=== PATIENT | female | born 1955 | race Caucasian/White ===

== ENCOUNTER 2018-01-01 06:20 | Day surgery (SDC) | payer OTHER ==
[2018-01-01] MEDS: LACTATED RINGER'S 1,000 ML IV* (06:00)
[2018-01-01] MEDS ORDERED: DIPHENHYDRAMINE 50 MG INJ IV (06:30)
[2018-01-01] MEDS ORDERED: MIDAZOLAM 1 MG/ML 2 ML INJ IV (06:30)
[2018-01-01] MEDS ORDERED: morphine (1 MG/ML) 10ML SYRINGE IV ×3 (06:30)
[2018-01-01] MEDS ORDERED: ATROPINE 1 MG/10 ML SYRINGE IV (06:30)
[2018-01-01] MEDS ORDERED: OXYCODONE/ACETAMINOPHEN (5/325) TAB PO ×2 (06:30)
[2018-01-01] MEDS ORDERED: EPHEDrine SULFATE 50 MG/5 ML SYG IV (06:30)
[2018-01-01] MEDS ORDERED: HYDROmorphONE 1 MG/5 ML IV SYRINGE IV ×3 (06:30)
[2018-01-01] MEDS ORDERED: MEPERIDINE 25 MG INJ IV (06:30)
[2018-01-01] MEDS ORDERED: FENTAnyl 50 MCG/ML VIAL IV (06:30)
[2018-01-01] MEDS ORDERED: LABETALOL HCL 20MG INJ IV (06:30)
[2018-01-01] MEDS ORDERED: ROCURONIUM 50 MG INJ (06:31)
[2018-01-01] MEDS ORDERED: NEOSTIGMINE 3 MG/3 ML SYRINGE (06:31)
[2018-01-01] MEDS ORDERED: GLYCOPYRROLATE 0.4 MG INJ (06:31)
[2018-01-01] MEDS ORDERED: PROPOFOL 20 ML (06:31)
[2018-01-01] MEDS ORDERED: FENTAnyl 50 MCG/ML VIAL (06:31)
[2018-01-01] MEDS ORDERED: LIDOCAINE 2% (SDV) 5 ML INJ (06:31)
[2018-01-01] MEDS ORDERED: DEXAMETHASONE 4 MG/ML 1 ML INJ (06:32)
[2018-01-01] MEDS ORDERED: ONDANSETRON 4 MG INJ (06:32)
[2018-01-01] MEDS ORDERED: MIDAZOLAM 1 MG/ML 2 ML INJ (06:32)
[2018-01-01] MEDS: INSULIN ASPART [NOVOLOG] 3 ML PEN SC (07:11)
[2018-01-01 07:32] LABS: ADD MAN DIFF? NO
[2018-01-01 07:35] LABS: WHITE BLOOD COUNT 10.5 10^3/ul (4.8-10.8)
[2018-01-01 07:35] LABS: BASOPHIL # 0.1 10^3/ul (0.0-0.1); BASOPHILS % 0.8 % (0.0-2.0); EOSINOPHILS # 0.2 10^3/ul (0.0-0.5); EOSINOPHILS % 2.1 % (0.0-7.0); HEMATOCRIT 38.6 % (37.0-47.0); HEMOGLOBIN 13.1 g/dl (12.0-16.0); LYMPHOCYTES # 2.6 10^3/ul (0.8-2.9); LYMPHOCYTES % 24.8 % (15.0-51.0); MEAN CORPUSCULAR HEMOGLOBIN 30.6 pg (29.0-33.0); MEAN CORPUSCULAR HGB CONC 33.9 g/dl (32.0-37.0); MEAN CORPUSCULAR VOLUME 90.2 fl (82.0-101.0); MEAN PLATELET VOLUME 11.4 fl (7.4-10.4); MONOCYTE # 0.7 10^3/ul (0.3-0.9); MONOCYTES % 7.1 % (0.0-11.0); NEUTROPHIL # 6.8 10^3/ul (1.6-7.5); PLATELET COUNT 244 10^3/UL (140-415); RED BLOOD COUNT 4.28 10^6/ul (4.20-5.40); RED CELL DISTRIBUTION WIDTH 13.3 % (11.5-14.5)
[2018-01-01 07:59] LABS: ANION GAP 15 (8-16); BLOOD UREA NITROGEN 16 mg/dl (7-20); CALCIUM 9.5 mg/dl (8.4-10.2); CARBON DIOXIDE 23 mmol/L (21-31); CHLORIDE 107 mmol/L (97-110); CREATININE 0.65 mg/dl (0.44-1.00); GLUCOSE 197 mg/dl (70-220); POTASSIUM 4.3 mmol/L (3.5-5.1); SODIUM 141 mmol/L (135-144)
[2018-01-01 08:08] LABS: INR 0.93; PROTIME 12.6 Sec (11.9-14.9)
[2018-01-01] MEDS: CLINDAMYCIN 900 MG/D5W (PMX) 50 ML IVPB (08:10)
[2018-01-01] MEDS ORDERED: ROPIVACAINE 0.5 % 30 ML VIAL (08:37)
[2018-01-01] MEDS ORDERED: LABETALOL HCL 20MG INJ (08:52)
[2018-01-01] MEDS ORDERED: FLUMAZENIL 0.5 MG INJ (09:19)
[2018-01-01] MEDS ORDERED: NALOXONE (0.4 MG/ML) INJ (09:27)
[2018-01-01] MEDS ORDERED: SUGAMMADEX SODIUM 200 MG/2 ML VIAL IV (09:31)
[2018-01-01] MEDS: ONDANSETRON 4 MG INJ IV (09:57)
[2018-01-01] MEDS: hydrALAzine 20 MG INJ IV (09:57)
[2018-01-01] MEDS: FENTAnyl 50 MCG/ML VIAL IV (10:24)
== END 2018-01-01 15:40 | disposition home or self-care (01) ==
LOC: SDS 06:20
DX: S52.572D Other intraarticular fracture of lower end of left radius, subsequent encounter for closed fracture with routine healing (principal); X58.XXXD Exposure to other specified factors, subsequent encounter; G56.02 Carpal tunnel syndrome, left upper limb; E11.9 Type 2 diabetes mellitus without complications
CPT/HCPCS: 25609; 73090; 80048; 82962; 85025; 85610; 85730